=== PATIENT | male | born 1970 ===

== ENCOUNTER 2025-03-02 06:00 | Day surgery (SDC) | payer OTHER ==
[2025-02-24 12:55] VITALS: BP 126/74
[~2025-03-02] VITALS: Ht 172.7 cm; Wt 83.9 kg
[~2025-03-02 06:00] MED LIST: LEVO-T25 MCG PO; LIPITOR20 MG
[2025-03-02] MEDS ORDERED: CEFAZOLIN SODIUM 1,000 MG VIAL ONE (11:37)
[2025-03-02] MEDS ORDERED: BUPIVACAINE HCL/MPF 0.5% 30ML VIAL ONE (13:02)
[2025-03-02] MEDS ORDERED: LIDOCAINE HCL 2% 20ML VIAL IJ ONE (13:03)
== END 2025-03-02 15:40 | disposition home or self-care (01) ==
LOC: CIR.AMB 06:00
PROVIDERS: ATTEND Surgery Surgery of the Hand
DX: M72.0 Palmar fascial fibromatosis [Dupuytren] (principal); E03.8 Other specified hypothyroidism; J32.9 Chronic sinusitis, unspecified; E78.5 Hyperlipidemia, unspecified